=== PATIENT | female | born 1945 | race Caucasian/White ===

== ENCOUNTER → 2017-03-01 | Outpatient (CLI) | payer OTHER | LOC: FIMAGING 08:49 | PROVIDERS: ATTEND Family Medicine | DX: Z12.31 Encounter for screening mammogram for malignant neoplasm of breast (principal) | CPT/HCPCS: G0202 ==

== ENCOUNTER 2017-07-26 11:40 | Day surgery (SDC) | payer OTHER ==
[2017-07-26] MEDS ORDERED: LR 1,000 ML IV ONE (11:45)
[2017-07-26] MEDS ORDERED: LIDOCAINE 1% 2 ML INJ ID PRN (11:45)
[2017-07-26] MEDS ORDERED: ceFAZolin 2 GM/SWFI 2 GM/20 ML SYR IVP ONE (12:32)
--- NOTE | 2017-07-26 12:32 | PDHPUP ---
History & Physical Update H&P update statement: This history and physical update is based on an assessment of the patient which was completed after admission or registration (within 24 hours), but prior to the surgery/procedure. no changes H&P changes: none
[2017-07-26] MEDS ORDERED: ROPIVACAINE HCL 20 MG/10 ML INJ EP ONE (12:45)
[2017-07-26] MEDS ORDERED: ROPIVACAINE HCL 150 MG/30 ML INJ ONE (12:45)
[2017-07-26] MEDS ORDERED: LIDOCAINE 1% 300 MG/30 ML SDV ONE (12:45)
[2017-07-26] MEDS ORDERED: BUPIVACAINE 0.5% 30 ML SDV ONE (12:45)
[2017-07-26] MEDS ORDERED: BACITRACIN 50,000 UNITS/10 ML SYR IRR ONE (12:46)
--- NOTE | 2017-07-26 13:04 | PDANEPAE ---
ANE History of Present Illness 72 yo female for L foot hardware removal. ANE Past Medical History - Cardiovascular History Hx Hypertension: Yes Hx Arrhythmias: No Hx Chest Pain: No Hx Coronary Artery / Peripheral Vascular Disease: No Hx CHF / Valvular Disease: No Hx Palpitations: No Cardiovascular History Comment: STARTED ON HCTZ 03/2016 - Pulmonary History Hx COPD: No Hx Asthma/Reactive Airway Disease: No Hx Recent Upper Respiratory Infection: No Hx Oxygen in Use at Home: No Hx Sleep Apnea: No Sleep Apnea Screening Result - Last Documented: Negative - Neurologic History Hx Cerebrovascular Accident: No Hx Seizures: No Hx Dementia: No - Endocrine History Hx Diabetes: No Hypothyroid: No - Renal History Hx Renal Disorders: No - Liver History Hx Hepatic Disorders: No - Neurological & Psychiatric Hx Hx Neurological and Psychiatric Disorders: No - Cancer History Hx Cancer: No - Congenital Disorder History Hx Congenital Disorders: No - GI History GERD: moderate Hx Gastrointestinal Disorders: Yes Gastrointestinal History Comment: occ reflux - took two week course of omeprazole until 07/07/17, now on Zantac, but hasn't needed any - Other Health History Other Health History: dermatitis on face around nose - Chronic Pain History Chronic Pain: Yes (right shoulder) - Surgical History Prior Surgeries: L FOOT SURGERY 2016. tonsillectomy at 11 years old. appy around 32 years old. D&C. tubal ligation 1978 ANE Review of Systems Review of Systems: - Exercise capacity METS (RN): 5 METS - Systems EENMT: Reports: no symptoms Cardiac: Reports: no symptoms Genitourinary: Reports: frequency, urgency, other (current UTI on amoxicillin) ANE Patient History - Allergies Allergies/Adverse Reactions: No Known Allergies Allergy (Verified 03/08/16 09:43) - Home Medications Home Medications: Aspirin 81mg (*) 02/03/16 [Last Taken 07/12/17] Atorvastatin Calcium 02/03/16 [Last Taken 07/26/17] Herbals/Supplements -Info Only 02/03/16 [Last Taken 07/12/17] Hydrochlorothiazide 07/21/17 [Last Taken 07/26/17] Potassium 07/21/17 [Last Taken 07/25/17] - NPO status NPO Since - Liquids (Date): 07/26/17 NPO Since - Liquids (Time): 09:30 NPO Since - Solids (Date): 07/25/17 NPO Since - Solids (Time): 17:00 - Smoking Hx Smoking Status: Never smoked - Family Anes Hx Family Hx Anesthesia Complications: none ANE Labs/Vital Signs - Vital Signs Blood Pressure: 142/72 Heart Rate: 85 Respiratory Rate: 16 O2 Sat (%): 95 Height: 158.75 cm Weight: 69.853 kg ANE Physical Exam - Airway Neck exam: FROM Mallampati Score: Class 2 (short TMD) - Pulmonary Pulmonary: clear to auscultation - Cardiovascular Cardiovascular: regular rate and rhythym - ASA Status ASA Status: II ANE Anesthesia Plan Anesthesia Plan: GA with mask Total IV Anesthesia: Yes
[2017-07-26] MEDS ORDERED: fentaNYL 100 MCG/2 ML INJ ONE (13:21)
[2017-07-26] MEDS ORDERED: PROPOFOL/EMULSION 500 MG/50 ML BOTTLE IV ONE (13:21)
[2017-07-26] MEDS ORDERED: DEXAMETHASONE 4 MG/ML VIAL ONE (13:49)
[2017-07-26] MEDS ORDERED: NALOXONE HCL 0.4 MG/ML INJ IVP PRN (14:11)
[2017-07-26] MEDS ORDERED: ACETAMINOPHEN 500 MG TAB PO PRN (14:11)
[2017-07-26] MEDS ORDERED: ALBUTEROL 3 ML DEYVIAL IH PRN (14:11)
[2017-07-26] MEDS ORDERED: ONDANSETRON 4 MG/2 ML VIAL IVP PRN (14:11)
[2017-07-26] MEDS ORDERED: LR 500 ML IV PRN (14:11)
[2017-07-26] MEDS ORDERED: fentaNYL 100 MCG/2 ML INJ IVP PRN (14:11)
[2017-07-26] MEDS ORDERED: HYDROCODONE/APAP 5/325 TAB PO PRN (14:11)
--- NOTE | 2017-07-26 14:26 | POSTANESTH ---
Post Anesthetic Evaluation Cardiovascular Status: Normal, Stable Respiratory Status: Normal, Stable Level of Consciousness/Mental Status: Can Participate in Eval, Mildly Sleepy, Arousable Pain Control: Adequate, Prn Tx Ordered Nausea/Vomiting Control: Adequate, Prn Tx Ordered Complications Possibly Related to Anesthesia: None Noted
--- NOTE | 2017-07-26 14:27 | POSTOPPROG ---
Post Op Note Date of Operation: 07/26/17 Surgeon: Ariana Gaines Mri Special Procedures Technologist: none Anesthesiologist: Dr. Tavarez Anesthesia: LMA Pre-op Diagnosis: deep internal fixation,pain left foot first metatarsal Post-op Diagnosis: same Indication: pain, irritation Procedure: removal of 2 screws first metatarsal left foot Findings: adhesions.screw loose Inf/Abcess present in the surg proc area at time of surgery?: No Depth: Deep Incisional (Fascial) EBL: Minimal Complications: none Specimen(s): none
[2017-07-26 15:10] VITALS: RESP 17; O2SAT 96
[2017-07-26 15:33] VITALS: TEMP 96.8
[2017-07-26 16:18] VITALS: BP 154/89; PULSE 69
--- NOTE | 2017-07-26 20:44 | GOP ---
[f rep st] OPERATIVE REPORT DATE OF OPERATION: SURGEON: Ariana Gaines DPM ANESTHESIA: MAC. ANESTHESIOLOGIST: Pretty Hanson MD PREOPERATIVE DIAGNOSIS: Irritation deep hardware, 1st metatarsal, left foot. POSTOPERATIVE DIAGNOSIS: Irritation deep hardware, 1st metatarsal, left foot. PROCEDURE PERFORMED: Removal of 2 screws, 1st metatarsal, left foot. FINDINGS: INDICATIONS: Overall, the patient had an uneventful postoperative recovery and is very pleased with the outcome of her bunion and hammertoe surgery. However, she experiences sensitivity. She points t o the area where the hardware is present. Symptoms have been some sharp pains that go down the toe. We reviewed her treatment options, recommending hardware removal. At this time, she elects to proce ed with surgery to remove hardware. DESCRIPTION OF PROCEDURE: The patient was brought into the operating room and placed on the operatin g table in the supine position. Intravenous sedation was administered by the anesthesiologist. Post erior tibial peripheral nerve block was obtained utilizing a total of 15 cc of a 1:1:1 mix of 1% lido azael plain, 0.5% Marcaine plain, and 0.5 ropivacaine plain. The lower extremity was prepped in the usual sterile manner and the procedure was begun. The limb was elevated and exsanguinated with an Es march bandage and then the ankle tourniquet was inflated to 230 mmHg. Webril padding was utilized un brandy the ankle cuff. Attention was directed towards the previous incision line along the dorsal 1st metatarsal. The incis ion was carefully deepened with care of neurovascular structures and to clamp and cauterize bleeders. Subcutaneous adhesions were noted on the more medial aspect of the incision. The incision was deep ened through the periosteum and screw heads identified. Some bony hypertrophy was noted around the s crew heads, removed with a powered rotating bur, and then both screws were removed without any diffic ulty from the 1st metatarsal head. The proximal screw was noted to be loose. The wound was copiously irrigated with bacitracin irrigation solution. Adhesions in the area were ge ntly released. Then, utilizing 1 cc of Decadron combined with 2 cc of 0.5% ropivacaine along the med ial aspect of the 1st metatarsal head more proximal, the area was injected to help break up scar tiss ue. The tourniquet was released and a normal hyperemic response was noted to all digits. Capsular c losure was achieved with 4-0 and 3-0 Vicryl. Subcutaneous closure was achieved with 4-0 Monocryl. T he skin was closed with 4-0 Prolene in a horizontal mattress and simple interrupted suture manner. A bout 0.5 cc of the Decadron/Marcaine mixture was injected to the incision area, again to help with sc ar tissue. Dressings include Xeroform, 4 x 4's, and fluffs, reinforced with Sallie tape and an Eric bandage. The patient tolerated the procedure and anesthesia well and left the operating room with vital signs stab le and vascular status intact to all digits. There were no intraoperative complications. In postope rative recovery, she was doing well. Her will be providing her transportation home. She is to follow up this week, prior to the weekend, for a wound check. Prognosis is good. /[id number]/MODL
== END 2017-07-26 16:10 | disposition home or self-care (01) ==
LOC: FSGY 11:40
PROVIDERS: ATTEND Podiatrist
PROC: 0QPP04Z Removal of Internal Fixation Device from Left Metatarsal, Open Approach (ICD-10-PCS; principal; 2017-07-26 13:00)
DX: Z47.2 Encounter for removal of internal fixation device (principal)
CPT/HCPCS: J0690; J1100; J2704; J2795; J3010

== ENCOUNTER → 2018-05-17 | Outpatient (CLI) | payer OTHER | LOC: FIMAGING 12:34 | PROVIDERS: ATTEND Family Medicine | DX: Z12.31 Encounter for screening mammogram for malignant neoplasm of breast (principal) ==

== ENCOUNTER → 2018-06-17 | Outpatient (CLI) | payer OTHER | LOC: FIMAGING 09:10 | PROVIDERS: ATTEND Family Medicine | DX: R92.0 Mammographic microcalcification found on diagnostic imaging of breast (principal) ==

== ENCOUNTER → 2018-06-29 | Day surgery (SDC) | payer OTHER ==
[~2018-06-29] MED LIST: BUPIVACAINE 0.5% 30 ML SDV ONE; LIDOCAINE 1% 300 MG/30 ML SDV ONE; THROMBIN (BOVINE) 5,000 UNIT VIAL TP ONE
== END | disposition home or self-care (01) ==
LOC: FIMAGING 07:15
PROVIDERS: ATTEND Radiology Diagnostic Radiology
DX: N60.12 Diffuse cystic mastopathy of left breast (principal)

== ENCOUNTER → 2018-12-01 | Outpatient (CLI) | payer OTHER | LOC: FIMAGING 10:14 ==